=== PATIENT | male | born 1965 | race Caucasian/White ===

== ENCOUNTER 2018-12-17 12:19 | Observation (INO) ==
[2018-12-17] MEDS ORDERED: Nitroglycerin 0.4 MG TAB.SUBL SL PRN ×3 (12:29→18:15)
--- NOTE | 2018-12-17 12:33 | Emergency Department Note ---
Disposition Clinical Impression: Unstable angina pectoris Disposition: Still a Patient General Adult HPI - General Chief complaint: ED Chest Pain Stated complaint: Chest pain Time Seen by Provider: 12/17/18 12:29 Source: patient, EMS Nursing Notes Reviewed: Yes Vital Signs Reviewed: Yes - History of Present Illness HPI Narrative: Attestation note: Patient was seen with the emergency medicine resident/nurse practitioner/physician administrative services assistant/transitional resident/medical student: Dr. Eliot Campos I have personally performed a face to face evaluation on this patient. I have reviewed and agree with history and physical examination patient management and disposition. Briefly the salient points of the case are as follows: 53-year-old male history of RI multiple stents last year ago on off chest pain at rest and with exertion for the past 3 weeks. EKG without the benefit of Cardiologic assistance sinus rhythm at 72 bpm normal axis intervals no acute ischemic changes are noted. No acute changes when contacted compared to prior EKG dated 04/10/2016. Patient's physical examination is benign. Patient got nitroglycerin per EMS and aspirin which temporarily controlled his pain which is back. Patient with the mitral trial here and a nitro drip along with analgesics and antiemetics screening labs chest x-ray. Patient will be admitted. Providing 45 minutes critical care service for this patient. Disposition pending Pain Scale: 3 - Related Data Home Medications Medication Instructions Recorded Confirmed Albuterol Sulfate [Proair 90 mcg IH 6XD PRN 10/02/15 10/02/15 Respiclick] Amlodipine Besylate 10 mg PO DAILY 10/02/15 10/02/15 Atenolol 25 mg PO DAILY 10/02/15 10/02/15 Clopidogrel [Plavix] 75 mg PO DAILY 10/02/15 10/02/15 Fluticasone/Salmeterol [Advair puff IH BID 10/02/15 100-50 Diskus] Furosemide [Lasix] 40 mg PO DAILY 10/02/15 10/02/15 HYDROcodone/Acet 5/325 mg [[place] 1 tab PO BID PRN 10/02/15 10/02/15 5-325 mg] Klor-Con M15 10 meq PO DAILY 10/02/15 10/02/15 Polymyxin B Sulf/Trimethoprim 1 drop LEFT EYE 6XD 10/02/15 10/02/15 Ranitidine HCl 150 mg PO BID 10/02/15 10/02/15 Ropinirole HCl 5 mg DAILY 10/02/15 10/02/15 Previous Rx's Medication Instructions Recorded Aspirin 81 mg PO DAILY tab.chew 10/04/15 Atorvastatin [Lipitor] 40 mg PO HS #30 tablet 10/04/15 Nicotine Patch [Nicoderm] 21 mg TD DAILY 14 Days patch.td24 10/04/15 Nitroglycerin 0.4 mg SL Q5MIN PRN #25 tab.subl 10/04/15 Allergies Allergy/AdvReac Type Severity Reaction Status Date / Time No Known Allergies Allergy Verified 10/02/15 09:43 Past Medical History - Past Medical History Medical history: Reports: arthritis, CHF, COPD, GERD, hyperlipidemia, hypertension, myocardial infarction Surgical history: Reports: angioplasty/stent Psychiatric history: Reports: no psych history - Social History Smoking Status: Current every day smoker Smokeless Tobacco Status: No Alcohol use: Reports: none Drug use: Reports: none Physical Exam - General General appearance: alert Course Vital Signs Temperature 98.8 F 12/17/18 12:25 Pulse Rate 66 12/17/18 12:25 Respiratory Rate 17 12/17/18 12:25 Blood Pressure 150/77 12/17/18 12:25 O2 Sat by Pulse Oximetry 100 12/17/18 12:25 Temperature 98.8 F 12/17/18 12:25 Pulse Rate 66 12/17/18 12:25 Respiratory Rate 17 12/17/18 12:25 Blood Pressure 150/77 12/17/18 12:25 O2 Sat by Pulse Oximetry 100 12/17/18 12:25 Oxygen Delivery Oxygen Delivery Room Air
--- NOTE | 2018-12-17 12:43 | Emergency Department Note ---
Disposition Clinical Impression: Unstable angina pectoris Disposition: Still a Patient Condition: Good General Adult HPI - General Chief complaint: ED Chest Pain Stated complaint: Chest pain Time Seen by Provider: 12/17/18 12:29 Source: patient, EMS Nursing Notes Reviewed: Yes Vital Signs Reviewed: Yes - History of Present Illness HPI Narrative: 53-year-old male past medical history of stent placement presents emergency department with concern for chest pain. Patient states that started this morning. He took 3 nitroglycerin and relieved most of his symptoms. His reporting a central chest pressure as radiating down his left arm. He states that it felt the same as when he had his previous heart attack. After taking nitroglycerin, the pain improved from a 10 out of 10 to a 3 out of 10. Patient describes some nausea, but no diaphoresis. Pain Scale: 3 - Related Data Home Medications Medication Instructions Recorded Confirmed Albuterol Sulfate [Proair 90 mcg IH 6XD PRN 10/02/15 10/02/15 Respiclick] Amlodipine Besylate 10 mg PO DAILY 10/02/15 10/02/15 Atenolol 25 mg PO DAILY 10/02/15 10/02/15 Clopidogrel [Plavix] 75 mg PO DAILY 10/02/15 10/02/15 Fluticasone/Salmeterol [Advair puff IH BID 10/02/15 100-50 Diskus] Furosemide [Lasix] 40 mg PO DAILY 10/02/15 10/02/15 HYDROcodone/Acet 5/325 mg [[place] 1 tab PO BID PRN 10/02/15 10/02/15 5-325 mg] Klor-Con M15 10 meq PO DAILY 10/02/15 10/02/15 Polymyxin B Sulf/Trimethoprim 1 drop LEFT EYE 6XD 10/02/15 10/02/15 Ranitidine HCl 150 mg PO BID 10/02/15 10/02/15 Ropinirole HCl 5 mg DAILY 10/02/15 10/02/15 Previous Rx's Medication Instructions Recorded Aspirin 81 mg PO DAILY tab.chew 10/04/15 Atorvastatin [Lipitor] 40 mg PO HS #30 tablet 10/04/15 Nicotine Patch [Nicoderm] 21 mg TD DAILY 14 Days patch.td24 10/04/15 Nitroglycerin 0.4 mg SL Q5MIN PRN #25 tab.subl 10/04/15 Allergies Allergy/AdvReac Type Severity Reaction Status Date / Time No Known Allergies Allergy Verified 10/02/15 09:43 All systems ED: reviewed and negative except as stated. Review of Systems: As Per HPI Constitutional: Denies: fever Cardiovascular: Reports: chest pain. Denies: palpitations Respiratory: Denies: cough, dyspnea Gastrointestinal: Reports: nausea Past Medical History - Past Medical History Attestation: Yes The following information was validated with the patient. Medical history: Reports: arthritis, CHF, COPD, GERD, hyperlipidemia, hypertension, myocardial infarction Surgical history: Reports: angioplasty/stent Psychiatric history: Reports: no psych history - Social History Smoking Status: Current every day smoker Smokeless Tobacco Status: No Alcohol use: Reports: none Drug use: Reports: none Physical Exam - General Limitations: no limitations General appearance: alert - Head Head exam: normocephalic - Eye Eye exam: Present: EOMI - ENT ENT exam: mucous membranes moist - Neck Neck exam: Present: trachea midline - Chest Chest inspection: Present: symmetric chest wall rise - Respiratory Respiratory exam: Present: normal lung sounds bilaterally. Absent: respiratory distress, accessory muscle use - Cardiovascular Cardiovascular exam: Present: regular rate, normal rhythm, normal heart sounds - Abdominal Exam Abdominal exam: Present: soft, Non-Tender. Absent: tenderness, distention, guarding, rebound, rigidity - Extremities Exam Extremities exam: Present: normal capillary refill. Absent: pedal edema - Back Exam Back exam: Present: full ROM - Neurological Exam Neurological exam: Present: alert, oriented X3 - Psychiatric Psychiatric exam: Present: normal affect, normal mood - Skin Skin exam: Present: warm, dry, intact, normal color. Absent: rash Course Vital Signs Temperature 98.8 F 12/17/18 12:25 Pulse Rate 66 12/17/18 12:25 Respiratory Rate 17 12/17/18 12:25 Blood Pressure 150/77 12/17/18 12:25 O2 Sat by Pulse Oximetry 100 12/17/18 12:25 Temperature 98.8 F 12/17/18 12:25 Pulse Rate 71 12/17/18 13:29 Respiratory Rate 19 12/17/18 13:29 Blood Pressure 132/77 12/17/18 13:29 O2 Sat by Pulse Oximetry 96 12/17/18 13:29 Oxygen Delivery Oxygen Delivery Room Air Medical Decision Making - MDM Narrative Medical decision making narrative: 53-year-old male presents emergency department with concern for chest pain. Patient with no ischemic ST changes on his EKG. Troponin was negative. Chest x-ray was normal. Chest pain responded to nitroglycerin. Patient not in any acute distress and hemodynamically stable. Do not suspect dissection at this time or PE. Patient with typical chest pain from previous ACS, no back pain, no widening of the mediastinum with blood pressures that were only mildly elevated. Patient not hypoxic here or hypotensive so do not suspect PE. Patient admitted to Dr. Mcpherson. Chest X-Ray 12/17/18 12:29 IMPRESSION: No acute finding in the chest. D/ / Justo Baker MD / Justo Baker MD Interpreting Provider: Justo Baker MD - Lab Data Result diagrams: 12/17/18 12:42 12/17/18 12:42 Lab Results 12/17/18 12/17/18 12/17/18 Range/Units 12:42 12:42 12:42 WBC 7.1 (4.3-11.1) K/mcL RBC 4.77 (4.19-5.50) M/mcL Hgb 14.2 (12.9-16.9) g/dL Hct 41.2 (37.5-50.1) % MCV 86.4 (83.0-100.0) fL MCH 29.8 (28.0-33.3) pg MCHC 34.5 (31.6-35.5) g/dL RDW 12.5 (11.5-14.5) % Plt Count 203 (140-400) K/mcL MPV 10.2 (9.4-12.4) fL Immature Gran % 0.3 (0-4) % Seg Neutrophils % 63.8 % Lymphocytes % 26.3 % Monocytes % 8.5 % Eosinophils % 0.4 % Basophils % 0.7 % Neutrophils # 4.5 (1.6-8.9) K/mcL Lymphocytes # 1.9 (0.6-4.6) K/mcL Monocytes # 0.6 (0.0-1.3) K/mcL Eosinophils # 0.0 (0.0-0.6) K/mcL Basophils # 0.1 (0.0-0.2) K/mcL PT 10.3 (9.4-12.1) Seconds INR 0.9 APTT 35.2 (26.0-36.0) Seconds Sodium 137 (136-145) mEq/L Potassium 3.1 L (3.5-5.1) mEq/L Chloride 105 (98-107) mEq/L Carbon Dioxide 20 L (23-29) mEq/L BUN 11 (6-20) mg/dL Creatinine 0.79 (0.70-1.30) mg/dL Est GFR ( Amer) > 60 (> 60) Est GFR (Non-Af Amer) > 60 (> 60) BUN/Creatinine Ratio 14 (6-26) Glucose 188 H (70-105) mg/dL Calculated Osmolality 288 (280-300) Calcium 9.1 (8.6-10.3) mg/dL Troponin I < 0.03 (< 0.04) ng/mL - EKG Data EKG #1 EKG attestation: Yes I reviewed and interpreted this EKG. EKG results narrative: Troponin 24 Heart rate 72 bpm, AR interval 148 ms, QRS duration 90 ms, QT 393 ms, normal axis. Sinus rhythm with no ischemic ST changes. Heart Score - Score History: Moderately Suspicious EKG: Normal Age: 45-65 Risk Factors: Equal/Greater than 3 risk factor or history of atherosclerotic disease Troponin: Less than normal limit HEART Score Total: 4
[2018-12-17 12:56] LABS: Basophils # 0.1 K/mcL (0.0-0.2); Basophils % 0.7 %; Eosinophils % 0.4 %; Hematocrit 41.2 % (37.5-50.1); Hemoglobin 14.2 g/dL (12.9-16.9); Immature Granulocytes % 0.3 % (0-4); Lymphocytes # 1.9 K/mcL (0.6-4.6); Lymphocytes % 26.3 %; Mean Corpuscular HGB Conc 34.5 g/dL (31.6-35.5); Mean Corpuscular Hemoglobin 29.8 pg (28.0-33.3); Mean Corpuscular Volume 86.4 fL (83.0-100.0); Mean Platelet Volume 10.2 fL (9.4-12.4); Monocytes # 0.6 K/mcL (0.0-1.3); Monocytes % 8.5 %; Neutrophils # 4.5 K/mcL (1.6-8.9); Platelet Count 203 K/mcL (140-400); Red Blood Count 4.77 M/mcL (4.19-5.50); Red Cell Distribution Width 12.5 % (11.5-14.5); Segmented Neutrophils % 63.8 %
[2018-12-17 13:20] LABS: INR 0.9; Prothrombin Time 10.3 Seconds (9.4-12.1)
[2018-12-17 13:26] LABS: Troponin I < 0.03 ng/mL (< 0.04)
[2018-12-17 13:27] LABS: Activated Partial Thrombo Time 35.2 Seconds (26.0-36.0)
[2018-12-17 13:33] LABS: BUN/Creatinine Ratio 14 (6-26); Blood Urea Nitrogen 11 mg/dL (6-20); Calcium 9.1 mg/dL (8.6-10.3); Carbon Dioxide 20 mEq/L (23-29); Chloride 105 mEq/L (98-107); Glucose 188 mg/dL (70-105); Osmolality,Calculated 288 (280-300); Potassium 3.1 mEq/L (3.5-5.1); Sodium 137 mEq/L (136-145); eGFR For Non-African Americans > 60 (> 60)
--- NOTE | 2018-12-17 14:52 | Internal Med History&Physical ---
Date of Encounter: 12/17/18 Time of Encounter: 14:48 Internal Medicine - H&P: HPI Chief complaint: chest pain Admitted From: Emergency Dept History of present illness: Mr. 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 As per patient he had intermittent chest pain overnight that got better with rest but this morning it was worse therefore decided to come to ER. He rated his pain 8 by 10 in the morning and took nitroglycerin blistering that helped him. In ER one nitroglycerin and aspirin was given and now his pain eased down to 2 x 10. Patient also had associated lightheadedness and feel clammy at the time of chest pain. In ER initial troponin negative with no ischemic change in EKG. ER physician called on-call hospitalists to get admitted for chest pain rule out workup. Patient denies fever chills nausea vomiting headache dizziness cough shortness of breath abdominal pain urinary bowel complaint. Past Med Surg Social Fam HX - Past Medical History Medical history: arthritis, CHF, COPD, GERD, hyperlipidemia, hypertension, myocardial infarction Psychiatric history: no psych history - Past Surgical History Surgical History: angioplasty/stent Additional surgical history: bowel as a child - Social History Smoking Status: Current every day smoker Smokeless Tobacco Status: No Alcohol use: none Drug use: none - Family History Mother Family Member Ethnicity: Non- Living Status: Hx Family Cardiac Disorders: Yes (HEART DISEASE, CHF, HTN) Hx Family Respiratory Disorders: No Hx Family Cancer: No Hx Family GI Disorders: No Hx Family Endocrine Disorder: Yes (DIABETES) Hx Family Neuromuscular Disorders: No Hx Family Neurologic Disorders: No Hx Family HEENT Disorders: No Hx Family Autoimmune Disorders: No Brother Adopted: No Family Member Ethnicity: Non- Living Status: Hx Family Cardiac Disorders: Yes (CAD) Father Living Status: Age at : 80 Cause of : "lung disease" Hx Family Cardiac Disorders: No Hx Family Respiratory Disorders: Yes ("lung disease") Internal Medicine - H&P: Meds Clopidogrel [Plavix] 75 mg PO DAILY 10/02/15 [History] Furosemide [Lasix] 40 mg PO DAILY 10/02/15 [History] HYDROcodone/Acet 5/325 mg [[place] 5-325 mg] 1 tab PO BID PRN 10/02/15 [History] Aspirin 81 mg PO DAILY tab.chew 10/04/15 [Rx] Atorvastatin [Lipitor] 40 mg PO HS #30 tablet 10/04/15 [Rx] Nitroglycerin 0.4 mg SL Q5MIN PRN #25 tab.subl 10/04/15 [Rx] Albuterol Sulfate [Ventolin Hfa] 2 puff IH Q4H PRN 12/17/18 [History] Amlodipine Besylate 5 mg PO DAILY 12/17/18 [History] Fluticasone/Vilanterol [Breo Ellipta 100-25 Mcg INH] 1 puff IH DAILY 12/17/18 [History] Metoprolol [Lopressor] 25 mg PO BID 12/17/18 [History] Potassium Chloride [Klor-Con 10] 10 meq PO DAILY 12/17/18 [History] Ranitidine HCl [Heartburn Relief] 150 mg PO BID 12/17/18 [History] Ropinirole HCl 4 mg PO HS 12/17/18 [History] Allergy/AdvReac Type Severity Reaction Status Date / Time No Known Allergies Allergy Verified 10/02/15 09:43 All Systems PM: A 10-system review of systems was performed and is negative for pertinent findings except as documented above in the HPI. - Constitutional Vitals: Temp Pulse Resp BP Pulse Ox 98.8 F 71 19 132/77 96 12/17/18 12:25 12/17/18 13:29 12/17/18 13:29 12/17/18 13:29 12/17/18 13:29 Exam: General appearance: No acute distress, A&O X 3. at bedside. Obese Head exam: Atraumatic Eye exam: EOMI, PERRLA ENT exam: Moist oral mucosa Neck nontender, supple Respiratory exam: Clear to auscultation bilaterally Cardiovascular exam: Regular rate and rhythm, no systolic murmur Abdominal exam: Soft, nontender, nondistended, positive bowel sounds Extremities exam: No calf tenderness, no pedal edema Present: Skin-no rash, warm, dry, intact Neurological exam: Alert, awake, oriented 3, CN II-XII intact, no focal deficits. No facial droop. Normal speech. Internal Med - H&P Results - Labs CBC & Chem 7: 12/17/18 12:42 12/17/18 12:42 Labs: Short CBC 12/17/18 Range/Units 12:42 WBC 7.1 (4.3-11.1) K/mcL Hgb 14.2 (12.9-16.9) g/dL Hct 41.2 (37.5-50.1) % Plt Count 203 (140-400) K/mcL Neutrophils # 4.5 (1.6-8.9) K/mcL BMP 12/17/18 12:42 Sodium 137 Potassium 3.1 L Chloride 105 Carbon Dioxide 20 L BUN 11 Creatinine 0.79 Glucose 188 H Calcium 9.1 Cardiac Enzymes 12/17/18 Range/Units 12:42 Troponin I < 0.03 (< 0.04) ng/mL - Impressions ITS Impressions Chest X-Ray 12/17/18 12:29 IMPRESSION: No acute finding in the chest. D/ / Justo Baker MD / Justo Baker MD Interpreting Provider: Justo Baker MD - Assessment and Plan (1) Unstable angina pectoris Current Visit: Yes Status: Acute Assessment and plan: High risk due to underlying CAD status post 2 stent. Hypertension and tobacco abuse history. Initial troponin negative with no acute finding in EKG. Serial troponin, telemetry, aspirin, beta donna, nitroglycerin, statin. Echocardiogram. Consulting house cleaner supervisor. Will consider heparin drip if troponin positive or as per cardiology advice. (2) COPD (chronic obstructive pulmonary disease) Current Visit: Yes Status: Acute Assessment and plan: Stable. Does not appear in acute exacerbation. Continue home nebulizer as needed Qualifiers: COPD type: unspecified COPD Qualified Code(s): J44.9 - Chronic obstructive pulmonary disease, unspecified (3) Hyperlipidemia Current Visit: Yes Status: Acute Assessment and plan: Fasting lipid profile. Continue statin Qualifiers: Hyperlipidemia type: unspecified Qualified Code(s): E78.5 - Hyperlipidemia, unspecified (4) CHF (congestive heart failure) Current Visit: Yes Status: Acute Assessment and plan: Does not appear in CHF exacerbation. Continue home Lasix Qualifiers: Heart failure type: unspecified Heart failure chronicity: unspecified Qualified Code(s): I50.9 - Heart failure, unspecified (5) Obesity (BMI 30.0-34.9) Current Visit: No Status: Acute (6) HTN (hypertension) Current Visit: No Status: Chronic Qualifiers: Hypertension type: essential hypertension Qualified Code(s): I10 - Essential (primary) hypertension (7) DVT prophylaxis Current Visit: No Status: Acute Assessment and plan: Heparin subcutaneous (8) Hypokalemia Current Visit: Yes Status: Acute Assessment and plan: Replacement and monitoring - Time Spent With Patient Total time spent is greater than 50% in coordination of care (as documented) at patient's floor/unit and/or counseling patient: 25 - 35 minutes
[2018-12-17] MEDS ORDERED: Naloxone 0.4 MG/ML INJ IVP PRN (14:53)
[2018-12-17] MEDS ORDERED: Ondansetron 4 MG/2 ML VIAL IVP PRN (14:53)
[2018-12-17] MEDS ORDERED: D5% in Water 1,000 ML IVC PRN (14:56)
[2018-12-17] MEDS ORDERED: *HR* Dextrose 50 % in Water (Syg) 50 ML SYRINGE IVP PRN (14:56)
[2018-12-17] MEDS ORDERED: Dextrose Gel 15 GM/37.5 ML TUBE PO PRN ×2 (14:56)
[2018-12-17 15:30] LABS: Magnesium 1.8 mg/dL (1.6-2.6)
[2018-12-17 15:50] LABS: Estimated Average Glucose 186 mg/dl; Hemoglobin A1C 8.1 %
[2018-12-17] MEDS: Insulin LISPRO 300 UNITS/3 ML VIAL SQ SCH (17:12)
[2018-12-17] MEDS ORDERED: *HR* HYDROcodone/Acet 5/325 mg TABLET PO PRN (17:51)
[2018-12-17] MEDS ORDERED: *HR* Heparin 5,000 UNIT/ML VIAL IVP ONE (18:22)
[2018-12-17] MEDS ORDERED: *HR* Heparin 5,000 UNIT/ML VIAL IVP PRN ×2 (18:22)
[2018-12-17] MEDS ORDERED: Nitroglycerin 1 INCH/GM PACKET TP ONE (18:23)
[2018-12-17] MEDS ORDERED: Heparin 25,000 UNIT/250 ML D5W 25,000 UNIT/250 ML IV.SOLN IVC SCH (18:30)
[2018-12-17 18:57] LABS: Hematocrit 40.5 % (37.5-50.1); Hemoglobin 13.9 g/dL (12.9-16.9); Mean Corpuscular HGB Conc 34.3 g/dL (31.6-35.5); Mean Corpuscular Hemoglobin 29.8 pg (28.0-33.3); Mean Corpuscular Volume 86.9 fL (83.0-100.0); Mean Platelet Volume 9.8 fL (9.4-12.4); Platelet Count 193 K/mcL (140-400); Red Blood Count 4.66 M/mcL (4.19-5.50); Red Cell Distribution Width 12.9 % (11.5-14.5)
[2018-12-17 19:46] LABS: Heparin anti-factor XA UFH 0.01 IU/mL (0.30-0.70); Prothrombin Time 11.1 Seconds (9.4-12.1)
[2018-12-17] MEDS: rOPINIRole 1 MG TABLET PO SCH (20:26)
[2018-12-17] MEDS: Famotidine 20 MG TABLET PO SCH (20:26)
[2018-12-17] MEDS ORDERED: Perflutren Lipid Microsphere 1.3 ML in 0.9 % Sodium Chloride 8.7 ML IVP ONE (21:09)
[2018-12-17] MEDS ORDERED: *HR* Heparin 5,000 UNIT/ML VIAL SQ SCH (22:00)
[2018-12-18 02:54] LABS: Basophils # 0.1 K/mcL (0.0-0.2); Basophils % 0.8 %; Eosinophils # 0.2 K/mcL (0.0-0.6); Hematocrit 40.5 % (37.5-50.1); Hemoglobin 13.4 g/dL (12.9-16.9); Immature Granulocytes % 0.2 % (0-4); Immature Platelets 3.4 % (1.1-6.1); Lymphocytes # 2.3 K/mcL (0.6-4.6); Lymphocytes % 35.6 %; Mean Corpuscular HGB Conc 33.1 g/dL (31.6-35.5); Mean Corpuscular Hemoglobin 29.6 pg (28.0-33.3); Mean Corpuscular Volume 89.4 fL (83.0-100.0); Mean Platelet Volume 9.7 fL (9.4-12.4); Monocytes # 0.6 K/mcL (0.0-1.3); Monocytes % 9.5 %; Neutrophils # 3.2 K/mcL (1.6-8.9); Platelet Count 199 K/mcL (140-400); Red Blood Count 4.53 M/mcL (4.19-5.50); Segmented Neutrophils % 50.9 %
[2018-12-18 03:05] LABS: BUN/Creatinine Ratio 15 (6-26); Blood Urea Nitrogen 12 mg/dL (6-20); Calcium 9.1 mg/dL (8.6-10.3); Carbon Dioxide 25 mEq/L (23-29); Chloride 106 mEq/L (98-107); Chol/HDL Ratio 4.5 (0-4.9); Cholesterol 135 mg/dL (< 200); Glucose 159 mg/dL (70-105); HDL Cholesterol 30 mg/dL (40-59); LDL Cholesterol,Calculated 63 mg/dL (0-99); Osmolality,Calculated 289 (280-300); Potassium 3.5 mEq/L (3.5-5.1); Sodium 138 mEq/L (136-145); Triglycerides 208 mg/dL (< 150); eGFR For Non-African Americans > 60 (> 60)
--- NOTE | 2018-12-18 06:07 | Event Note ---
Date of Encounter: 12/18/18 Time of Encounter: 06:10 - Cardiology Event Note I made patient NPO. He is ruling out for MO, plan for stress nuclear today for risk stratification and will see formalize consultation if results are abnormal. Continue current medical therapy that reduces risk of ACS and progressive CAD (ie aspirin and statin).
[2018-12-18] MEDS ORDERED: Regadenoson 0.4 MG/5 ML SYRINGE IVP ONE (09:16)
--- NOTE | 2018-12-18 10:21 | Electrocardiograph Report ---
[address] [address] Test Date: 2018-12-17 Pat Name: Ace Meza Department: EXAM2 Room: 3B Gender: M Car Restorer: : 1965 Requested By: Eliot Campos Order Number: [id number] Reading MD: Gracie Pedraza Measurements Intervals [place] Rate: 72 P: 73 AK: 148 QRS: 68 QRSD: 90 T: 45 QT: 393 QTc: 431 Interpretive Statements Sinus rhythm Electronically Signed On 12-18-2018 10:20:28 EDT by Gracie Pedraaz
[2018-12-18] MEDS: Insulin LISPRO 300 UNITS/3 ML VIAL SQ SCH ×3 (10:23→16:56)
[2018-12-18] MEDS: Aspirin 81 MG TAB.CHEW PO SCH (11:48)
[2018-12-18] MEDS: (Fluticasone/Vilanterol [Breo Ellipta 100-25 Mcg Inh]) IH SCH (11:48)
[2018-12-18] MEDS: amLODIPine 5 MG TABLET PO SCH (11:48)
[2018-12-18] MEDS: Famotidine 20 MG TABLET PO SCH ×2 (11:48→22:34)
[2018-12-18] MEDS: Furosemide 40 MG TABLET PO SCH (11:48)
--- NOTE | 2018-12-18 14:08 | Internal Med Progress Note ---
Hospitalist Progress Note - Encounter Date of Encounter: 12/18/18 Time of Encounter: 14:04 - Subjective Interval History: Patient sitting comfortably on chair. Denies any active chest pain at this time. Family at bedside. Had a stress test done. Review the lab with serial troponin negative Denies chest pain fever chills shortness of breath nausea vomiting abdominal pain or bowel complaint - Exam Vitals: Temp Pulse Resp BP Pulse Ox 97.7 F 57 16 144/76 97 12/18/18 11:25 12/18/18 11:25 12/18/18 11:25 12/18/18 11:25 12/18/18 11:25 Exam: General appearance: No acute distress, A&O X 3. at bedside. Obese Head exam: Atraumatic Eye exam: EOMI, PERRLA ENT exam: Moist oral mucosa Neck nontender, supple Respiratory exam: Clear to auscultation bilaterally Cardiovascular exam: Regular rate and rhythm, no systolic murmur Abdominal exam: Soft, nontender, nondistended, positive bowel sounds Extremities exam: No calf tenderness, no pedal edema Present: Skin-no rash, warm, dry, intact Neurological exam: Alert, awake, oriented 3, CN II-XII intact, no focal deficits. No facial droop. Normal speech. - Assessment and Plan (1) Unstable angina pectoris Current Visit: Yes Status: Acute Assessment and Plan: High risk due to underlying CAD status post 2 stent. Hypertension and tobacco abuse history. Initial troponin negative with no acute finding in EKG. Serial troponin, telemetry, aspirin, beta donna, nitroglycerin, statin. Echocardiogram-EF 55%, mild LVEDD otherwise no significant valvular dysfunction no regional wall motion abnormality. Nuclear stress tests-abnormal. Consulted cardiology-plan for heart catheter on Thursday. As patient is chest pain-free with serial troponin negative therefore no heparin drip continued-discuss with cardiology team Continue aspirin, Plavix, beta donna, statin , Nitroglycerin (2) COPD (chronic obstructive pulmonary disease) Current Visit: Yes Status: Acute Assessment and Plan: Stable. Does not appear in acute exacerbation. Continue home nebulizer as needed (3) Hyperlipidemia Current Visit: Yes Status: Acute Assessment and Plan: Fasting lipid profile reviewed. Continue statin (4) CHF (congestive heart failure) Current Visit: Yes Status: Acute Assessment and Plan: Does not appear in CHF exacerbation. Continue home Lasix (5) Obesity (BMI 30.0-34.9) Current Visit: No Status: Acute Assessment and Plan: Nutritional education. Will consult swine nutritionist (6) HTN (hypertension) Current Visit: No Status: Chronic Assessment and Plan: Well controlled. Continue to monitor (7) DVT prophylaxis Current Visit: No Status: Acute Assessment and Plan: Heparin subcutaneous (8) Hypokalemia Current Visit: Yes Status: Acute Assessment and Plan: Replacement and monitoring - Time Spent with Patient Total time spent is greater than 50% in coordination of care (as documented) at patient's floor/unit and/or counseling patient: 25 - 35 minutes Plan of Care Discussed with: patient Internal Medicine: Result - Labs CBC & Chem 7: 12/18/18 02:36 12/18/18 02:36 Labs: Short CBC 12/17/18 12/18/18 Range/Units 18:39 02:36 WBC 7.2 6.3 (4.3-11.1) K/mcL Hgb 13.9 13.4 (12.9-16.9) g/dL Hct 40.5 40.5 (37.5-50.1) % Plt Count 193 199 (140-400) K/mcL Neutrophils # 3.2 (1.6-8.9) K/mcL BMP 12/17/18 12/18/18 12:42 02:36 Sodium 137 138 Potassium 3.1 L 3.5 Chloride 105 106 Carbon Dioxide 20 L 25 BUN 11 12 Creatinine 0.79 0.82 Glucose 188 H 159 H Calcium 9.1 9.1 Cardiac Enzymes 12/17/18 12/17/18 12/18/18 Range/Units 12:42 18:19 00:24 Troponin I < 0.03 < 0.03 < 0.03 (< 0.04) ng/mL - ABG Interpretation ABG results: PT/INR, D-dimer PT 11.1 Seconds (9.4-12.1) 12/17/18 18:19 D-Dimer 367 ng/mLFEU (0-500) 12/17/18 18:19 - Impressions Impressions Echocardiogram 12/17/18 17:54 Impressions: LVEF 55%. Normal LV chamber size, wall thickness and function. Mild left ventricular diastolic dysfunction. Normal right ventricular structure and function. No significant valvular dysfunction. Unable to estimate RVSP due to lack of TR jet. No evidence of a PFO with agitated saline contrast. Left Ventricular Wall Motion: Rest Echo Findings All wall segments showed normal motion. Findings: Study Quality * Technically sub-optimal due to poor echocardiographic windows. ECG Findings * Normal sinus rhythm. Left Ventricle * LVEF 55%. * Normal LV chamber size, wall thickness and function. * Mild left ventricular diastolic dysfunction. Right Ventricle * Normal right ventricular structure and function. Left Atrium * Normal left atrial size. Right Atrium * Mildly dilated right atrium. Aortic Valve * Aortic valve not well visualized. * No aortic regurgitation. * No aortic stenosis. Mitral Valve * Normal mitral valve structure and function. * No mitral stenosis. * No mitral regurgitation. Tricuspid Valve * Normal tricuspid valve structure and function. * No tricuspid regurgitation. * Unable to estimate RVSP due to lack of TR jet. Pulmonic Valve * Pulmonic valve not well visualized. * No pulmonic regurgitation. Aorta * Normally sized aortic root. Pericardium * The pericardium appears normal. IVC * The IVC is not well evaluated. Pulmonary Artery * Normal visualized portions of the main pulmonary artery. Interatrial Septum * No evidence of a PFO with agitated saline contrast. Consult Discharge Plan - Plan Referrals: Racheal Diehl, OYSTER HARVESTER [Primary Care Provider] - (Follow up has been requested) (2) COPD (chronic obstructive pulmonary disease) Qualifiers: COPD type: unspecified COPD Qualified Code(s): J44.9 - Chronic obstructive pulmonary disease, unspecified (3) Hyperlipidemia Qualifiers: Hyperlipidemia type: unspecified Qualified Code(s): E78.5 - Hyperlipidemia, unspecified (4) CHF (congestive heart failure) Qualifiers: Heart failure type: unspecified Heart failure chronicity: unspecified Qualified Code(s): I50.9 - Heart failure, unspecified (6) HTN (hypertension) Qualifiers: Hypertension type: essential hypertension Qualified Code(s): I10 - Essential (primary) hypertension
[2018-12-18] MEDS ORDERED: ALPRAZolam 0.25 MG TABLET PO PRN (18:55)
[2018-12-18] MEDS: rOPINIRole 1 MG TABLET PO SCH (22:34)
[2018-12-18] MEDS: *HR* Heparin 5,000 UNIT/ML VIAL SQ SCH (22:45)
[2018-12-19] MEDS: *HR* Heparin 5,000 UNIT/ML VIAL SQ SCH (05:02)
[2018-12-19] MEDS: Insulin LISPRO 300 UNITS/3 ML VIAL SQ SCH (08:14)
[2018-12-19] MEDS: Aspirin 81 MG TAB.CHEW PO SCH (08:15)
[2018-12-19] MEDS: Famotidine 20 MG TABLET PO SCH (08:15)
[2018-12-19] MEDS: (Fluticasone/Vilanterol [Breo Ellipta 100-25 Mcg Inh]) IH SCH (08:15)
[2018-12-19] MEDS: amLODIPine 5 MG TABLET PO SCH (08:15)
[2018-12-19] MEDS: Furosemide 40 MG TABLET PO SCH (08:15)
--- NOTE | 2018-12-19 10:41 | Cardiology Consult Note ---
Addendum entered and electronically signed by Surinder Storey MD 12/19/18 12:11: I examined this patient and my medical decision-making was reviewed with the PROP AND EFFECTS DESIGNER. I agree with the documented findings, disposition and treatment plan as described except to the extent set forth below. A/P: Abnormal stress test - SDS 2, not high risk with known history of CAD sp PCI OM/dRCA CAD Chest pain - no recurrence and ruled out for AR A/R/B of [facility] dw patient. He wants to go home and return as outpatient, stress SDS 2 not consistent with high risk. He is aware to avoid strenuous activities. Thank you for the consult and allowing me to participate in your patient's care Surinder Storey MD [facility] Addendum entered and electronically signed by Donis Valdivia CNP 12/19/18 11:41: Discussed and reviewed with Dr. Storey. Pt prefers outpt [facility]. Will add Imdur 30mg daily. Cardiology signing off. Reconsult PRN. Will coordinate outpt follow-up in 1-2 weeks to coordinate [facility] outpt. Original Note: Date of Encounter: 12/19/18 Time of Encounter: 10:38 Assessment and Plan (1) Abnormal stress test Current Visit: Yes Status: Acute Stress test revealed Large sized, moderate to severe intensity, primarily fixed inferior and inferolateral perfusion defect consistent with a prior infarct. There is a small amount of judd-infarct ischemia in the basal to mid inferior segments. SDS 2. Hx CAD. [facility] 10/03/15 Double vessel CAD. Previously stented OM1 patent. Patient had successful PTCA/Drug-Eluting Stent placement in the distal RCA. Presenting symptoms similar to prior anginal equivalent. Recommend [facility]. R/B/A discussed and pt agrees to proceed. Plan for [facility] tomorrow. NPO after midnight. (2) CAD (coronary artery disease) Current Visit: Yes Status: Acute Hx PCI. Continue ASA, Plavix, Statin, BB. Qualifiers: Coronary Disease-Associated Artery/Lesion type: [place] artery [place] vs. transplanted heart: [place] heart Associated angina: with unstable angina Qualified Code(s): I25.110 - Atherosclerotic heart disease of [place] coronary artery with unstable angina pectoris (3) Chest pain Current Visit: Yes Status: Acute Intermittent CP started 2-3 weeks ago, left sided heaviness worse on exertion. Episode prior to ED radiated to left arm prompting evaluation. Associated symptoms of dyspnea, nausea, diaphoresis. Symptoms similar to prior anginal equivalent. Abnormal stress test as above. [facility] tomorrow. Qualifiers: Chest pain type: unspecified Qualified Code(s): R07.9 - Chest pain, unspecified Discussion w patient/family: The assessment and plan as outlined above was discussed with the patient and/or family members who expressed understanding and agreement. All questions were answered. Thank you for involving us in the care of your patient. Please call with any questions. I will discuss all the above with Dr. Storey and make changes as necessary. History of Present Illness Consult date: 12/19/18 Consult reason: abnormal stress Chief complaint: chest pain History of present illness: Mr. Meza is a 53 year old male with PMH of CAD s/p PCI that presented to ER with complaint of mid sternal and left-sided chest pain. Intermittent CP started 2-3 weeks ago, left sided heaviness worse on exertion. Episode prior to ED radiated to left arm prompting evaluation. Associated symptoms of dyspnea, nausea, diaphoresis. Symptoms similar to prior anginal equivalent. Troponins negative. Underwent nuclear stress test yesterday that revealed Large sized, moderate to severe intensity, primarily fixed inferior and inferolateral perfusion defect consistent with a prior infarct. There is a small amount of judd-infarct ischemia in the basal to mid inferior segments. SDS 2. Cardiology consulted for further recs. Prior CV testing: TTE 12/17/18: LVEF 55%. Normal LV chamber size, wall thickness and function. Mild LVDD. Normal RV structure and function. No significant valvular dysfunction. [facility] 10/03/15: Double vessel coronary artery disease. Previously stented OM1 patent. The left ventricle is normal and has normal contractility EF 55%. Patient had successful PTCA/Drug-Eluting Stent placement in the distal RCA. Past Med Surg Social Fam HX - Past Medical History Medical history: arthritis, CHF, COPD, coronary artery disease, GERD, hyperlipidemia, hypertension, myocardial infarction Psychiatric history: no psych history - Past Surgical History Surgical History: angioplasty/stent Additional surgical history: bowel as a child - Social History Smoking Status: Current every day smoker Packs per day: 2 Smokeless Tobacco Status: No Alcohol use: none Drug use: none - Family History Father Living Status: Age at : 80 Cause of : "lung disease" Hx Family Cardiac Disorders: No Hx Family Respiratory Disorders: Yes ("lung disease") Mother Family Member Ethnicity: Non- Living Status: Age at : 60 Cause of : CHF Hx Family Cardiac Disorders: Yes (HEART DISEASE, CHF, HTN) Hx Family Respiratory Disorders: No Hx Family Cancer: No Hx Family GI Disorders: No Hx Family Endocrine Disorder: Yes (DIABETES) Hx Family Neuromuscular Disorders: No Hx Family Neurologic Disorders: No Hx Family HEENT Disorders: No Hx Family Autoimmune Disorders: No Brother Adopted: No Family Member Ethnicity: Non- Living Status: Hx Family Cardiac Disorders: Yes (CAD) Medications and Allergies Clopidogrel [Plavix] 75 mg PO DAILY 10/02/15 [History] Furosemide [Lasix] 40 mg PO DAILY 10/02/15 [History] HYDROcodone/Acet 5/325 mg [[place] 5-325 mg] 1 tab PO BID PRN 10/02/15 [History] Aspirin 81 mg PO DAILY tab.chew 10/04/15 [Rx] Atorvastatin [Lipitor] 40 mg PO HS #30 tablet 10/04/15 [Rx] Nitroglycerin 0.4 mg SL Q5MIN PRN #25 tab.subl 10/04/15 [Rx] Albuterol Sulfate [Ventolin Hfa] 2 puff IH Q4H PRN 12/17/18 [History] Amlodipine Besylate 5 mg PO DAILY 12/17/18 [History] Fluticasone/Vilanterol [Breo Ellipta 100-25 Mcg INH] 1 puff IH DAILY 12/17/18 [History] Metoprolol [Lopressor] 25 mg PO BID 12/17/18 [History] Potassium Chloride [Klor-Con 10] 10 meq PO DAILY 12/17/18 [History] Ranitidine HCl [Heartburn Relief] 150 mg PO BID 12/17/18 [History] Ropinirole HCl 4 mg PO HS 12/17/18 [History] Allergy/AdvReac Type Severity Reaction Status Date / Time No Known Allergies Allergy Verified 10/02/15 09:43 All Systems Review: The remainder of the systems were reviewed and are negative - Cardiovascular Cardiovascular: as per HPI, chest pain at rest, chest pain with exertion, diaphoresis, dyspnea on exertion, radiating jaw, neck or arm pain - Gastrointestinal Gastrointestinal: nausea Physical Examination Vital Signs, Last 4 Hours Temp Pulse Resp BP Pulse Ox 12/19/18 06:58 97.6 F 70 17 149/82 96 Vital Signs Temp Pulse Resp BP Pulse Ox 12/19/18 06:58 97.6 F 70 17 149/82 96 12/19/18 04:58 97.9 F 77 14 144/84 96 12/18/18 23:25 97.6 F 68 14 153/88 97 12/18/18 19:40 97.5 F L 70 14 145/79 96 12/18/18 15:33 98.2 F 68 16 147/80 96 12/18/18 11:25 97.7 F 57 16 144/76 97 Intake and Output 12/18/18 12/19/18 12/19/18 23:59 07:59 15:59 Intake Total 800 / 800 Balance 800 / 800 Intake: Oral 800 / 800 Other: Meal Breakfast Percent of Meal Consumed 100% Weight 109.2 kg Blood Glucose* 110 157 Patient Weight 12/19/18 23:59 Weight 109.2 kg General: Conversant, No Apparent Distress HEENT: Atraumatic, Normocephaly, Mucus Membranes Moist Neck: No JVD, Normal carotid pulses Cardiac: Reg Rate and Rhythm, Normal S1 and S2, No Murmur Lungs: Normal Breath Sounds, No Wheeze, Rales, Rhonchi Neuro: Alert and responsive, No focal deficits noted Abdomen: Soft, Non-Tender Skin: No rashes noted on visualized skin Musculoskeletal: No Chest Wall Tenderness Extremities: No Clubbing, No Cyanosis, No Edema, Normal Pulses Results 12/18/18 02:36 12/18/18 02:36 Active Medications Hydrocodone Bitart/Acetaminophen ([place] 5-325 Mg) 1 tab PO BID PRN PRN Reason: Pain Stop: 06/18/19 17:52 Albuterol Sulfate (Albuterol Inhaler) 2 puff IH Q4H PRN PRN Reason: Shortness Of Breath Stop: 06/18/19 17:52 Alprazolam (Xanax) 0.25 mg PO BID PRN; Protocol PRN Reason: Anxiety Stop: 06/19/19 18:56 Last Admin: 12/18/18 22:34 Dose: 0.25 mg Amlodipine Besylate (Norvasc) 5 mg PO DAILY ALF; Protocol Stop: 06/19/19 09:01 Last Admin: 12/19/18 08:15 Dose: 5 mg Aspirin (Aspirin) 81 mg PO DAILY [facility] Stop: 06/19/19 09:01 Last Admin: 12/19/18 08:15 Dose: 81 mg Atorvastatin Calcium (Lipitor) 40 mg PO HS [facility] Stop: 06/18/19 21:01 Last Admin: 12/18/18 22:34 Dose: 40 mg Clopidogrel Bisulfate (Plavix) 75 mg PO DAILY [facility] Stop: 06/19/19 09:01 Last Admin: 12/19/18 08:15 Dose: 75 mg Dextrose/Water (Dextrose 50% (Syg)) 25 ml IVP AD PRN PRN Reason: Hypoglycemia Stop: 06/18/19 14:57 Famotidine (Pepcid) 20 mg PO BID [facility] Stop: 06/18/19 21:01 Last Admin: 12/19/18 08:15 Dose: 20 mg Furosemide (Lasix) 40 mg PO DAILY [facility] Stop: 06/19/19 09:01 Last Admin: 12/19/18 08:15 Dose: 40 mg Glucagon (Glucagen) 1 mg IM ONCE PRN PRN Reason: Hypoglycemia Stop: 06/18/19 14:57 Glucose (Gluctose) 15 gm PO ONCE PRN PRN Reason: Hypoglycemia Stop: 06/18/19 14:57 Glucose (Gluctose) 30 gm PO ONCE PRN PRN Reason: Hypoglycemia Stop: 06/18/19 14:57 Heparin Sodium (Porcine) (Heparin) 4,000 unit IVP Q6HR PRN PRN Reason: SEE COMMENTS Stop: 06/18/19 18:23 Heparin Sodium (Porcine) (Heparin) 5,000 unit SQ Q8HCO [facility] Stop: 06/19/19 22:01 Last Admin: 12/19/18 05:02 Dose: 5,000 unit Dextrose (Dextrose 5%) 1,000 mls @ 100 mls/hr IVC .Q10H PRN PRN Reason: HYPOGLYCEMIA Stop: 06/18/19 14:57 Insulin Human Lispro (Humalog) 0 units SQ TIDAC [facility]; Protocol Stop: 06/18/19 16:31 Last Admin: 12/19/18 08:14 Dose: 2 units Metoprolol Tartrate (Lopressor) 25 mg PO BID [facility] Stop: 06/18/19 21:01 Last Admin: 12/19/18 08:15 Dose: 25 mg Naloxone HCl (Narcan) 0.4 mg IVP Q2M PRN PRN Reason: SEE COMMENTS Stop: 06/18/19 14:54 Nitroglycerin (Nitroglycerin) 0.4 mg SL Q5M PRN PRN Reason: Chest Pain Stop: 06/18/19 17:52 Ondansetron HCl (Zofran) 4 mg IVP Q8HR PRN PRN Reason: Nausea And Vomiting Stop: 06/18/19 14:54 Pharmacy Profile Note (Patient Taking Own Medication) 0 each IH DAILY [facility] Stop: 06/19/19 09:01 Last Admin: 12/19/18 08:15 Dose: Not Given Potassium Chloride (Potassium Chloride) 10 meq PO DAILY ALF Stop: 06/19/19 09:01 Last Admin: 12/19/18 08:15 Dose: 10 meq Ropinirole HCl (Requip) 4 mg PO HS [facility] Stop: 06/18/19 21:01 Last Admin: 12/18/18 22:34 Dose: 4 mg - Imaging and Cardiology Stress Test: report reviewed Echo: report reviewed - EKG Interpretation EKG results cardiology: personally reviewed (SR) Consult Discharge Plan - Plan Referrals: Racheal Diehl, [employer] AND EFFECTS DESIGNER [Primary Care Provider] - (Follow up has been requested)
[2018-12-19 11:21] VITALS: BP 121/75
[2018-12-19] MEDS ORDERED: Isosorbide MONOnitrate (24 HR) 30 MG TAB.ER.24H PO SCH (11:45)
--- NOTE | 2018-12-19 12:20 | Discharge Summary ---
- NOTES TO OUTPATIENT PROVIDER Notes to Outpatient Provider: Schedule stress test for tomorrow outpatient as per cardiology recommendation. Follow with PCP in 5-7 days. Smoking cessation education. Avoid strenuous exercise Orders not resulted at time of discharge: Pending orders 12/18/18 06:04 NM [facility] perf SPECT multi [NM] Routine 12/20/18 08:00 CL Cardiac Catheterization [CL] Routine Date of Encounter: 12/19/18 Time of Encounter: 12:18 - Discharge Diagnosis (1) Unstable angina pectoris Priority: Primary Status: Acute Assessment and Plan: High risk due to underlying CAD status post 2 stent. Hypertension and tobacco abuse history. Initial troponin negative with no acute finding in EKG. Serial troponin, telemetry, aspirin, beta donna, nitroglycerin, statin. Echocardiogram-EF 55%, mild LVEDD otherwise no significant valvular dysfunction no regional wall motion abnormality. Nuclear stress tests-abnormal. Consulted cardiology-earlier there was plan for heart catheter on Thursday but patient insisted to go home and cardiologists decided for the outpatient stress test tomorrow but also explained the risk of cardiac event. He was also made aware to avoid strenuous activities. Patient will be discharged on aspirin and Plavix beta donna a statin, imdur and nitroglycerin when necessary (2) COPD (chronic obstructive pulmonary disease) Priority: Secondary Status: Acute Assessment and Plan: Stable. Does not appear in acute exacerbation. Continue home nebulizer as needed Qualifiers: COPD type: unspecified COPD Qualified Code(s): J44.9 - Chronic obstructive pulmonary disease, unspecified (3) Hyperlipidemia Priority: Secondary Status: Acute Assessment and Plan: Fasting lipid profile reviewed. Continue statin Qualifiers: Hyperlipidemia type: unspecified Qualified Code(s): E78.5 - Hyperlipidemia, unspecified (4) CHF (congestive heart failure) Priority: Secondary Status: Acute Assessment and Plan: Does not appear in CHF exacerbation. Continue home Lasix Qualifiers: Heart failure type: unspecified Heart failure chronicity: unspecified Qualified Code(s): I50.9 - Heart failure, unspecified (5) Obesity (BMI 30.0-34.9) Priority: Secondary Status: Acute Assessment and Plan: Nutritional education given (6) HTN (hypertension) Priority: Secondary Status: Chronic Assessment and Plan: Well controlled. Continue to monitor Qualifiers: Hypertension type: essential hypertension Qualified Code(s): I10 - Essential (primary) hypertension (7) Hypokalemia Priority: Primary Status: Acute Assessment and Plan: Resolved Hospital course: Mr. Meza is a 53 year old male patient got admitted for further evaluation of chest pain. Initially heparin drip and nitro drip was restarted that relieved chest pain completely. Serial troponin has been negative. Patient had abnormal stress tests. Please see detail in diagnosis section of discharge summary At the time of discharge patient is chest pain-free, ambulating well, tolerating oral diet and very willing to go home. Will discharge patient on imdur, scheduled for outpatient heart catheter possi karishma tomorrow Discharge discussed with: patient, family, nurse Time spent discussing smoking cessation with patient: 3 to 10 minutes - Time Spent with Patient Total time spent providing and/or coordinating discharge services: Time spent: Less than 30 minutes - Discharge Medications Prescriptions: No Action HYDROcodone/Acet 5/325 mg [[place] 5-325 mg] 1 tab PO BID PRN PRN Reason: Pain Furosemide [Lasix] 40 mg PO DAILY Clopidogrel [Plavix] 75 mg PO DAILY Atorvastatin [Lipitor] 40 mg PO HS #30 tablet Nitroglycerin 0.4 mg SL Q5MIN PRN #25 tab.subl PRN Reason: Chest Pain Aspirin 81 mg PO DAILY tab.chew Albuterol Sulfate [Ventolin Hfa] 2 puff IH Q4H PRN PRN Reason: Shortness Of Breath Amlodipine Besylate 5 mg PO DAILY Fluticasone/Vilanterol [Breo Ellipta 100-25 Mcg INH] 1 puff IH DAILY Metoprolol [Lopressor] 25 mg PO BID Potassium Chloride [Klor-Con 10] 10 meq PO DAILY Ranitidine HCl [Heartburn Relief] 150 mg PO BID Ropinirole HCl 4 mg PO HS Home Medications: Clopidogrel [Plavix] 75 mg PO DAILY 10/02/15 [History] Furosemide [Lasix] 40 mg PO DAILY 10/02/15 [History] HYDROcodone/Acet 5/325 mg [[place] 5-325 mg] 1 tab PO BID PRN 10/02/15 [History] Aspirin 81 mg PO DAILY tab.chew 10/04/15 [Rx] Atorvastatin [Lipitor] 40 mg PO HS #30 tablet 10/04/15 [Rx] Nitroglycerin 0.4 mg SL Q5MIN PRN #25 tab.subl 10/04/15 [Rx] Albuterol Sulfate [Ventolin Hfa] 2 puff IH Q4H PRN 12/17/18 [History] Amlodipine Besylate 5 mg PO DAILY 12/17/18 [History] Fluticasone/Vilanterol [Breo Ellipta 100-25 Mcg INH] 1 puff IH DAILY 12/17/18 [History] Metoprolol [Lopressor] 25 mg PO BID 12/17/18 [History] Potassium Chloride [Klor-Con 10] 10 meq PO DAILY 12/17/18 [History] Ranitidine HCl [Heartburn Relief] 150 mg PO BID 12/17/18 [History] Ropinirole HCl 4 mg PO HS 12/17/18 [History] Isosorbide MONOnitrate (24 HR) [Imdur] 30 mg PO DAILY #30 tab.er.24h 12/19/18 [Rx] Allergies/Adverse Reactions: Allergy/AdvReac Type Severity Reaction Status Date / Time No Known Allergies Allergy Verified 10/02/15 09:43 Date of admission: 12/17/18 14:11 Primary care physician: Racheal Diehl CNP Consults: 12/18/18 14:04 Consult to Cardiology [CONS] Routine Comment: Consulting Provider: Cardiology Joanna Reason for Consult: Chest pain with abnormal stress test Call Completed: Yes 12/18/18 14:08 Consult to Nutrition [CONS] Routine Comment: Consulting Provider: NUTRITION Reason for Dietary Consult: Diet Education - Constitutional Vitals: Temp Pulse Resp BP Pulse Ox 98.3 F 60 17 121/75 98 12/19/18 11:20 12/19/18 11:20 12/19/18 11:20 12/19/18 11:20 12/19/18 11:20 Exam: General appearance: No acute distress, A&O X 3 Head exam: Atraumatic Eye exam: EOMI, PERRLA ENT exam: Moist oral mucosa Neck nontender, supple Respiratory exam: Clear to auscultation bilaterally Cardiovascular exam: Regular rate and rhythm, no systolic murmur Abdominal exam: Soft, nontender, nondistended, positive bowel sounds Extremities exam: No calf tenderness, no pedal edema Present: Neurological exam: Grossly intact - Patient Status Disposition: Home, Self-Care Condition: Good Overall status at discharge: patient is back to baseline - Discharge Instructions Follow Up With: Racheal Diehl CNP [Primary Care Provider] - (Follow up has been requested) - Diet and Activity Diet: low fat, low cholesterol, low salt diet
== END 2018-12-19 13:42 | disposition home or self-care (01) ==
LOC: EMEROOARM 12:19 → 3BNU 12:19
PROVIDERS: ADMIT Internal Medicine; ATTEND General Practice

== ENCOUNTER 2019-04-21 10:12 | Observation (INO) ==
[2019-04-21] MEDS ORDERED: Aspirin 81 MG TAB.CHEW PO ONE (10:22)
[2019-04-21 10:40] LABS: Basophils # 0.1 K/mcL (0.0-0.2); Basophils % 0.9 %; Eosinophils # 0.2 K/mcL (0.0-0.6); Hematocrit 45.5 % (37.5-50.1); Hemoglobin 15.4 g/dL (12.9-16.9); Immature Granulocytes % 0.2 % (0-4); Lymphocytes # 2.7 K/mcL (0.6-4.6); Lymphocytes % 33.6 %; Mean Corpuscular HGB Conc 33.8 g/dL (31.6-35.5); Mean Corpuscular Hemoglobin 28.5 pg (28.0-33.3); Mean Corpuscular Volume 84.1 fL (83.0-100.0); Mean Platelet Volume 10.3 fL (9.4-12.4); Monocytes # 0.7 K/mcL (0.0-1.3); Neutrophils # 4.5 K/mcL (1.6-8.9); Platelet Count 236 K/mcL (140-400); Red Blood Count 5.41 M/mcL (4.19-5.50); Red Cell Distribution Width 13.2 % (11.5-14.5); Segmented Neutrophils % 55.3 %; White Blood Count 8.1 K/mcL (4.3-11.1)
[2019-04-21] MEDS ORDERED: Nitroglycerin 0.4 MG TAB.SUBL SL PRN (10:42)
[2019-04-21 11:02] LABS: BUN/Creatinine Ratio 19 (6-26); Blood Urea Nitrogen 16 mg/dL (6-20); Calcium 9.6 mg/dL (8.6-10.3); Carbon Dioxide 24 mEq/L (23-29); Chloride 99 mEq/L (98-107); Glucose 188 mg/dL (70-105); Osmolality,Calculated 288 (280-300); Potassium 3.8 mEq/L (3.5-5.1); Sodium 136 mEq/L (136-145); Troponin I < 0.03 ng/mL (< 0.04); eGFR For African Americans > 60 (> 60); eGFR For Non-African Americans > 60 (> 60)
[2019-04-21] MEDS ORDERED: Ipratropium/Albuterol Neb 3 ML IH ONE (11:15)
[2019-04-21] MEDS ORDERED: predniSONE 20 MG TABLET PO ONE (11:16)
[2019-04-21] MEDS ORDERED: *HR* FentaNYL (PF) 100 MCG/2 ML VIAL IVP ONE (11:16)
[2019-04-21] MEDS ORDERED: *HR* Heparin 5,000 UNIT/ML VIAL IVP ONE (14:16)
[2019-04-21] MEDS ORDERED: *HR* Heparin 5,000 UNIT/ML VIAL IVP PRN ×2 (14:16)
[2019-04-21] MEDS ORDERED: Heparin 25,000 UNIT/250 ML D5W 25,000 UNIT/250 ML IV.SOLN IVC SCH (14:30)
[2019-04-21] MEDS ORDERED: *HR* Promethazine 25 MG/ML VIAL IVP PRN (15:05)
[2019-04-21] MEDS ORDERED: Ondansetron 4 MG/2 ML VIAL IVP PRN (15:05)
[2019-04-21] MEDS ORDERED: Mag Hydrox/Al Hydrox/Simeth 30 ML UDC PO PRN (15:05)
[2019-04-21] MEDS ORDERED: Naloxone 0.4 MG/ML INJ IVP PRN (15:05)
[2019-04-21] MEDS ORDERED: MOM Conc 10 ML UD.LIQ PO PRN (15:05)
[2019-04-21 15:10] LABS: Heparin anti-factor XA UFH 0.04 IU/mL (0.30-0.70)
[2019-04-21 15:11] LABS: INR 0.9; Prothrombin Time 10.3 Seconds (9.4-12.1)
[2019-04-21 15:16] LABS: Hematocrit 41.6 % (37.5-50.1); Hemoglobin 14.1 g/dL (12.9-16.9); Mean Corpuscular HGB Conc 33.9 g/dL (31.6-35.5); Mean Corpuscular Hemoglobin 28.8 pg (28.0-33.3); Mean Corpuscular Volume 85.1 fL (83.0-100.0); Mean Platelet Volume 10.3 fL (9.4-12.4); Platelet Count 213 K/mcL (140-400); Red Blood Count 4.89 M/mcL (4.19-5.50); Red Cell Distribution Width 13.2 % (11.5-14.5)
[2019-04-21] MEDS ORDERED: Morphine Sulfate 2 MG/ML SYRINGE IVP PRN (15:24)
[2019-04-21] MEDS ORDERED: *HR* Ticagrelor 90 MG TABLET PO SCH (21:00)
[2019-04-22 05:22] LABS: Basophils % 0.3 %; Eosinophils % 0.2 %; Hematocrit 42.5 % (37.5-50.1); Hemoglobin 14.1 g/dL (12.9-16.9); Immature Granulocytes % 0.2 % (0-4); Lymphocytes # 2.2 K/mcL (0.6-4.6); Lymphocytes % 21.8 %; Mean Corpuscular HGB Conc 33.2 g/dL (31.6-35.5); Mean Corpuscular Hemoglobin 28.1 pg (28.0-33.3); Mean Corpuscular Volume 84.7 fL (83.0-100.0); Monocytes # 0.8 K/mcL (0.0-1.3); Neutrophils # 6.9 K/mcL (1.6-8.9); Platelet Count 203 K/mcL (140-400); Red Blood Count 5.02 M/mcL (4.19-5.50); Red Cell Distribution Width 13.3 % (11.5-14.5); Segmented Neutrophils % 69.5 %
[2019-04-22 05:43] LABS: BUN/Creatinine Ratio 24 (6-26); Blood Urea Nitrogen 19 mg/dL (6-20); Calcium 9.3 mg/dL (8.6-10.3); Carbon Dioxide 24 mEq/L (23-29); Chloride 101 mEq/L (98-107); Cholesterol 154 mg/dL (< 200); Glucose 192 mg/dL (70-105); HDL Cholesterol 52 mg/dL (40-59); LDL Cholesterol,Calculated 66 mg/dL (0-99); Magnesium 2.3 mg/dL (1.6-2.6); Osmolality,Calculated 291 (280-300); Phosphorous 3.6 mg/dL (2.7-4.5); Potassium 3.6 mEq/L (3.5-5.1); Sodium 137 mEq/L (136-145); Triglycerides 179 mg/dL (< 150); eGFR For African Americans > 60 (> 60); eGFR For Non-African Americans > 60 (> 60)
[2019-04-22 07:16] VITALS: BP 136/83
[2019-04-22] MEDS ORDERED: Isosorbide MONOnitrate (24 HR) 30 MG TAB.ER.24H PO SCH (09:30)
[2019-04-23] MEDS ORDERED: Aspirin Enteric Coated 81 MG Tablet PO SCH (09:00)
== END 2019-04-22 10:40 | disposition home or self-care (01) ==
LOC: 3BNU 10:12 → EMEROOARM 10:12 → 3BNU 12:57
PROVIDERS: ADMIT Internal Medicine Nephrology; ATTEND Internal Medicine Nephrology